=== PATIENT | female | born 1995 | race African-American/Black ===

== ENCOUNTER 2020-03-25 02:24 | Emergency (ER) | payer OTHER, SELFPAY ==
--- NOTE | 2020-03-25 02:29 | XR_ITS ---
EXAMINATION: XR KNEE, LEFT CLINICAL INFORMATION: Left knee pain. COMPARISON: None TECHNIQUE: AP and lateral views of the left knee. FINDINGS: Bones and soft tissues are normal. No fracture or joint effusion. Alignment is anatomic. Joint spaces are well maintained. No abnormal soft tissue calcification. XR/XR knee LT 2V IMPRESSION: Normal left knee.
[2020-03-25 02:34] VITALS: BP 114/70; PULSE 81; RESP 18; TEMP 36.7; O2SAT 99; BMI 35.2
--- NOTE | 2020-03-25 02:48 | PC.NURSE ---
Pt returns from XRay on hospital bed without incident, medicated per MAR.
[2020-03-25] MEDS: Acetaminophen 325 MG TABLET 975 MG PO (02:50)
[2020-03-25] MEDS: Ketorolac Tromethamine 15 MG/ML VIAL IM (02:50)
--- NOTE | 2020-03-25 03:06 | PC.NURSE ---
Pt assisted to the bathroom, unable to weight bare due to pain. Pt assisted back into bed to POC, awaiting XRay results. Continue to monitor.
--- NOTE | 2020-03-25 03:16 | ED_ITS ---
HPI - Extremity Injury (Lower) General Chief Complaint: Extremity Injury, Lower Stated Complaint: L KNEE PAIN S/P INJURY AT WORK Time Seen by Provider: 03/25/20 02:29 Source: patient Mode of arrival: EMS History of Present Illness HPI Narrative: This is a 24-year-old female without significant medical history who presents via EMS after sustaining an injury at work involving the right foot remaining planted and falling with a twisting motion involving the left knee. She denies any head strike or loss of consciousness. Currently she denies any pain to the right ankle or left ankle and states that pain is to the left knee without numbness/tingling distal to the injury. Related Data Previous Rx's Medication Instructions Recorded ketorolac 10 mg PO Q6H 5 Days #20 tab 03/25/20 Allergies Allergy/AdvReac Type Severity Reaction Status Date / Time No Known Allergies Allergy Unverified 12/27/19 16:37 [No Known Allergies*] Review of Systems Review of Systems: Pertinent positives and negatives as stated in HPI 10 point review of systems otherwise negative. [facility] Past Medical History Source: nursing notes reviewed Medical History No known health problems Social History Social History Advance Directives: No Advance Directives Information Provided: No Physical Exam Vital Signs: Vital Signs: Last Vital Signs Temp 98.1 F 03/25/20 02:34 Pulse 81 03/25/20 02:34 Resp 18 03/25/20 02:34 BP 114/70 03/25/20 02:34 Pulse Ox 99 03/25/20 02:34 Body Mass Index 35.2 VITAL SIGNS: Reviewed. GENERAL: Well developed, well nourished, in no acute distress. HEAD: Normocephalic/atraumatic, EYES: PERRLA, EOMI intact without pain, no nystagmus/pallor/icterus noted EARS: Ext canals without abnormality, TMs non-bulging and non-erythematous NOSE: Nares patent bilateral OROPHARYNX: no oral lesions noted, posterior pharynx clear and non-erythematous without noted tonsillar enlargement/erythema/exudates NECK: Supple, no adenopathy LUNGS: Normal breath sounds. No adventitious sounds or accessory muscle use. SpO2<99> CARDIOVASCULAR: Regular rate and rhythm without noted murmurs, no JVD or lower extremity edema. ABDOMEN: Soft, non-tender, non-distended with bowel sounds. No rigidity. No guarding. No palpable masses or hernias noted MUSCULOSKELETAL: No tenderness, deformities, or effusions noted on gross inspection. EXTREMITIES: No cyanosis, clubbing or edema; LEFT KNEE: No obvious edema or ecchymosis further evaluation limited by pain, capillary refill less than 3 seconds otherwise neurovascularly intact distal to the left knee SKIN: Inspection of the skin reveals no rashes, ulcerations, jaundice, pallor, or petechiae. NEUROLOGIC: Alert and oriented x 4. Strength and sensation to light touch were grossly intact x 4. Course Course Course Narrative: This is a 24-year-old female with history and clinical presentation most consistent with likely soft tissue injury as x-ray demonstrates absent bony or joint findings. Patient provided with combination analgesics for pain and will re-evaluate for pain improvement. She will otherwise be discharged with a knee immobilizer and crutches and instructed to follow-up with her company's employee health for further work evaluation. On re-evaluation patient his labs mild improvement pain symptoms and will have knee immobilizer put in place and received crutch training. Discharge Plan Discharge Clinical Impression: Injury of knee, left Qualifiers: Encounter type: initial encounter Qualified Code(s): S89.92XA - Unspecified injury of left lower leg, initial encounter Patient Disposition: Home, Self-Care Instructions: Crutch Instructions (ED), Knee Pain (ED), Knee Immobilizer (ED) Additional Instructions: 1. Tylenol 1000 mg, orally, every 6 hours as needed for pain control. Do not exceed 4000 mg within 24 hours. 2. Keep left lower extremity in knee immobilizer any time you are up and ambulating and use the crutches as well. 3. Apply ice for 15-20 minutes, 3 to 4 times a day, do not apply ice directly to exposed skin. 4. Try to keep left lower extremity elevated as much as possible. 5. Please call the office of the orthopedic surgeon this morning and set up an appointment for further evaluation of your left knee injury. Prescriptions: New ketorolac 10 mg tablet 10 mg PO Q6H 5 Days Qty: 20 RF: 0 Referrals: Gagan Pimentel MD [Physician] - 2 days (Please evaluate and treat left knee injury, suspect soft tissue injury as x-rays were without acute findings.) Stand Alone Forms: Work/School Release
--- NOTE | 2020-03-25 04:05 | PC.NURSE ---
Pt refusing Oxycodone at this time, aware of plan for knee immobilizer and crutches.
--- NOTE | 2020-03-25 04:33 | PC.NURSE ---
Knee immobilizer applied to left knee, pt provided with crutches. Pt aware of pending discharge but unable to find a ride home at this time.
[2020-03-25 04:36] VITALS: BP 116/80; PULSE 76; RESP 16
== END 2020-03-25 05:37 | disposition home or self-care (01) ==
PROVIDERS: Emergency Provider Student in an Organized Health Care Education/Training Program
DX: S89.92XA Unspecified injury of left lower leg, initial encounter (principal); M79.605 Pain in left leg; W01.0XXA Fall on same level from slipping, tripping and stumbling without subsequent striking against object, initial encounter; Y93.01 Activity, walking, marching and hiking; Y92.9 Unspecified place or not applicable; Y99.0 Civilian activity done for income or pay; Z79.899 Other long term (current) drug therapy
CPT/HCPCS: 73560; 96372; 99284; J1885

== ENCOUNTER 2020-04-14 12:32 | Emergency (ER) | payer OTHER, SELFPAY ==
[2020-04-14 13:53] VITALS: BP 122/75; PULSE 86; RESP 18; TEMP 36.5; O2SAT 98; BMI 31.9
--- NOTE | 2020-04-14 13:54 | ED.GENADULT ---
HPI - General Adult General Chief complaint: General Medical Stated complaint: VOMITING Time Seen by Provider: 04/14/20 13:54 Related Data Previous Rx's Medication Instructions Recorded ketorolac 10 mg PO Q6H 5 Days #20 tab 03/25/20 Allergies Allergy/AdvReac Type Severity Reaction Status Date / Time No Known Allergies Allergy Verified 03/25/20 04:06 [No Known Allergies*] PMFSH Past Medical History Medical History No known health problems Course Course Course Narrative: 1355-This is a rapid medical exam. 24 yo female previously healthy here with upper abdominal pain, vomiting x 4 days. Took 4 tests at home all positive. No cramping/bleeding. LMP 02/28. Will check labs, UA, urine . Give SL zofran. Deferred ROS, HPI and PE for primary provider. Discharge Plan Discharge Prescriptions: No Action ketorolac 10 mg tablet 10 mg PO Q6H 5 Days Qty: 20 RF: 0
[2020-04-14 14:20] LABS: Glucose Urine UA NEG (NEG); Leukocyte Esterase Urine NEG (NEG); Nitrite Urine NEG (NEG); Specific Gravity - Urine 1.025 (1.005-1.025); Urine Blood NEG (NEG); Urine Ketones NEG (NEG); Urine Protein NEG (NEG-TRACE)
[2020-04-14 14:21] LABS: Appearance Urine HAZY; Color Urine YELLOW; UPreg QC Valid YES; Urine Pregnancy POSITIVE (NEGATIVE)
[2020-04-14 18:00] VITALS: BP 125/61; PULSE 87; RESP 16; TEMP 36.8; O2SAT 100
--- NOTE | 2020-04-14 18:18 | US_ITS ---
EXAMINATION: US OB <= 14 weeks fetus, US OB transvaginal CLINICAL INFORMATION: Abdominal pain. Approximately one month COMPARISON: None. TECHNIQUE: Transabdominal and endovaginal sonograms of the pelvis were obtained. FINDINGS: There is a single living intrauterine including a gestational sac with a yolk sac and embryo. Embryonic heart motion is identified with rate 98 bpm. Based on the mean crown-rump length 2 mm, gestational age is 5 weeks 6 days. Sonographic NIMA 12/09/2020. Based on the last menstrual period of 02/29/2020, the clinical age is 6 weeks 3 days, clinical NIMA 12/05/2020, size 4 days less than dates. Normal-appearing right ovary measures 3.9 x 2.5 x 2.4 cm. Normal-appearing left ovary measures 2.6 x 1.8 x 2.6 cm. Small amount of likely physiologic free fluid is present adjacent the right ovary. US/US OB transvaginal IMPRESSION: Single living intrauterine with size 4 days less than dates. Embryonic heart motion is identified with rate 98 bpm. This is lower than typically seen but the heart rate can be variable at this gestational age. Consider short interval follow-up ultrasound to confirm expected interval growth and reassess heart motion.
--- NOTE | 2020-04-14 18:30 | US_ITS ---
EXAMINATION: US OB <= 14 weeks fetus, US OB transvaginal CLINICAL INFORMATION: Abdominal pain. Approximately one month COMPARISON: None. TECHNIQUE: Transabdominal and endovaginal sonograms of the pelvis were obtained. FINDINGS: There is a single living intrauterine including a gestational sac with a yolk sac and embryo. Embryonic heart motion is identified with rate 98 bpm. Based on the mean crown-rump length 2 mm, gestational age is 5 weeks 6 days. Sonographic NIMA 12/09/2020. Based on the last menstrual period of 02/29/2020, the clinical age is 6 weeks 3 days, clinical NIMA 12/05/2020, size 4 days less than dates. Normal-appearing right ovary measures 3.9 x 2.5 x 2.4 cm. Normal-appearing left ovary measures 2.6 x 1.8 x 2.6 cm. Small amount of likely physiologic free fluid is present adjacent the right ovary. US/US OB <= 14 weeks fetus IMPRESSION: Single living intrauterine with size 4 days less than dates. Embryonic heart motion is identified with rate 98 bpm. This is lower than typically seen but the heart rate can be variable at this gestational age. Consider short interval follow-up ultrasound to confirm expected interval growth and reassess heart motion.
--- NOTE | 2020-04-14 18:30 | US_ITS ---
EXAMINATION: ABDOMINAL ULTRASOUND COMPLETE CLINICAL INFORMATION: Left upper quadrant pain. COMPARISON: October 07, 2016. TECHNIQUE: Real-time imaging of the abdominal viscera. FINDINGS: PANCREAS: The visualized pancreatic head and body are normal in appearance. The remainder of the pancreas is obscured from visualization by the overlying bowel gas. ABDOMINAL AORTA: The proximal, middle, and distal aortic segments are normal in caliber. INFERIOR VENA CAVA: Visualized portions are normal. LIVER: Normal. The liver demonstrates normal size, contour and echogenicity. No focal lesion or intrahepatic biliary duct dilatation. GALLBLADDER: Normal. The gallbladder is physiologically distended without evidence of stones, sludge, polyps, wall thickening or pericholecystic fluid. COMMON BILE DUCT: Normal in caliber measuring 0.3 cm in diameter. RIGHT KIDNEY: Normal. No hydronephrosis. No renal calculi or focal parenchymal lesions. The kidney measures 11.7 cm in maximum dimension. LEFT KIDNEY: Normal. No hydronephrosis. No renal calculi or focal parenchymal lesions. The kidney measures 12.3 cm in maximum dimension. SPLEEN: Normal. The spleen measures 10.2 cm in maximum dimension. FREE FLUID: None. US/US abdomen complete IMPRESSION: Unremarkable abdominal ultrasound.
[2020-04-14 18:51] LABS: Hematocrit 33.8 % (37-47); Mean Corpuscular HGB Conc 32.5 g/dl (31.0-35.0); Mean Corpuscular Hemoglobin 27.4 pg (27.0-33.0); Mean Corpuscular Volume 84.3 fL (80-98); Mean Platelet Volume 11.1 fL (9.4-12.3); Platelet Count 336 X10*3/uL (160-400); Red Blood Count 4.01 X10*6/uL (4.20-5.50); Red Cell Distribution Width 14.6 % (11.0-16.0)
[2020-04-14 19:23] LABS: WBC ABN SCTR FOR CBC 1; White Blood Count 12.3 X10*3/uL (4.8-10.8)
[2020-04-14 19:26] LABS: Alanine Aminotransferase 12 U/L (0-31); Albumin Level 4.4 g/dL (3.5-5.0); Alkaline Phosphatase 42 U/L (39-117); Anion Gap 9 (12-20); Aspartate Amino Transferase 10 U/L (5-31); Bilirubin Direct 0.2 mg/dL (0.0-0.5); Bilirubin Total 0.3 mg/dL (0.0-1.0); Blood Urea Nitrogen 12 mg/dL (9-16); Carbon Dioxide 27 mmol/L (22-29); Chloride 104 mmol/L (96-108); Creatinine Clr Calc Pharmacy 149.9; Estimated Glomerular Filt Rate > 60; Glucose Random 90 mg/dL (60-115); Lipase 40 U/L (8-78); Potassium 4.2 mmol/l (3.3-5.1); Sodium 136 mmol/L (135-145); Total Protein 6.9 g/dL (6.5-8.0)
[2020-04-14 19:27] LABS: Band Neutrophils Percent 9 % (3-5); Lymphocytes Absolute Manual 2.8 X10*3/uL (0.6-4.8); Lymphocytes Percent Manual 23 % (20-40); Monocytes Absolute Manual 1.1 X10*3/uL (0.0-1.2); Monocytes Percent Manual 9 % (2-11); Neutrophils Absolute Manual 8.4 X10*3/uL (2.2-7.9); Neutrophils Percent Manual 59 % (45-73)
[2020-04-14 19:28] LABS: Large Platelet PRESENT; Platelet Estimate NORMAL (NORMAL); Platelet Morphology Comment NOTED; RBC Morphology NORMAL
--- NOTE | 2020-04-14 19:44 | ED_ITS ---
HPI - General Chief complaint: General Medical Stated complaint: VOMITING Time Seen by Provider: 04/14/20 13:54 Source: patient Mode of arrival: ambulatory Limitations: no limitations History of Present Illness HPI Narrative: 24-year-old female with no significant past medical history presents with nausea, vomiting, abdominal pain in the epigastric and left upper quadrant, and positive test. Patient insists that she must have an abdominal and pelvic ultrasound because she is concerned about the well-being of her fetus. She states that she is not supposed to have pain, and was told by ?multiple medical center representative that she must have an emergent ultrasound . She does not report any vaginal bleeding, vaginal discharge, assault, trauma, chest pain or pressure, palpitations, shortness of breath, fevers, chills, lower abdominal or suprapubic pain, or fevers and chills. MD Complaint: abdominal pain Onset (ago): day(s) (4) Pain Consistency: constant Location: abdomen Severity: moderate Severity scale (1-10): 6 Quality: Aching and Burning Relieving factors: none Exacerbating factors: eating and movement Associated symptoms: nausea and vomiting Vaginal discharge: none Vaginal bleeding: none Date of Last Menstrual Period: 02/29/20 Patient : Yes Related Data : 1 Para: 0 Total number of abortions (spontaneous and elective): 0 Previous Rx's Medication Instructions Recorded ketorolac 10 mg PO Q6H 5 Days #20 tab 03/25/20 Allergies Allergy/AdvReac Type Severity Reaction Status Date / Time No Known Allergies Allergy Verified 04/14/20 18:45 [No Known Allergies*] Review of Systems Review of Systems: Constitutional: No Weight loss, No Fever, No Chills, No Night Sweats, No Fatigue, No Malaise ENT/Mouth: No Hearing loss, No Ear Pain, No Nasal Congestion, No Sinus Pain, No Hoarseness, No sore throat, No Rhinorrhea, No Swallowing Difficulty Eyes: No Eye Pain, No Swelling, No Redness, No Foreign Body, No Discharge, No Vision Changes Cardiovascular: No Chest Pain, No SOB, No Dyspnea on Exertion, No Orthopnea, No Edema, No Palpitations Respiratory: No Cough, No Sputum, No Wheezing, No Smoke Exposure, No Dyspnea Gastrointestinal: Positive Nausea, Positive Vomiting, no Diarrhea, positive abdominal Pain, No Hematochezia, No Melena Genitourinary: Positive , no irregular bleeding, No Dysuria, No Urinary Frequency, No Hematuria, No Urinary Incontinence, No Urgency, No Flank Pain, No Urinary Flow Changes, No Hesitancy Musculoskeletal: No joint pain, No Myalgias, No Joint Swelling Skin: No Skin Lesions, No rash Neuro: No Weakness, No Numbness, No Paresthesias, No Loss of Consciousness, No Dizziness, No Headache Psych: No Anxiety/Panic, No Depression, No SI/HI/AH/VH, No Social Issues Heme/Lymph: No Bruising, No Bleeding,No Lymphadenopathy Endocrine: No Polyuria, No Polydipsia, No Temperature Intolerance Yes all other systems are reviewed and are negative [facility] Past Medical History Attestation statement: The following information was validated with the patient. Medical History No known health problems : 1 Para: 0 Total number of abortions (spontaneous and elective): 0 Date of Last Menstrual Period: 02/29/20 Social History Social History Advance Directives: No Advance Directives Information Provided: No Physical Exam Vital Signs: Vital Signs: Last Vital Signs Temp 97.9 F 04/14/20 20:32 Pulse 84 04/14/20 20:32 Resp 16 04/14/20 20:32 BP 131/71 04/14/20 20:32 Pulse Ox 100 04/14/20 20:32 Body Mass Index 31.9 Appearance: Alert. Oriented X3. No acute distress. Eyes: Pupils equal, round and reactive to light. ENT: Pharynx normal. Neck: Normal inspection. Neck supple. CVS: Normal heart rate and rhythm. Pulses normal. Respiratory: No respiratory distress. Breath sounds normal. Abdomen: Soft and tender on palpation to the epigastric and left upper quadrant, no palpable uterus Skin: Skin warm and dry. Normal skin color. Normal skin turgor. Extremities: No lower extremity edema. Neuro: No motor deficit. No sensory deficit. Course Course Course Narrative: 24-year-old female presents with nausea, vomiting, epigastric and left upper quadrant abdominal pain. She does not have any significant past medical history, states that she was told by several medical center representative that she needs an ultrasound emergently . She does not describe any suprapubic or adnexal pain, states to have cramping with her nausea and vomiting. Denies v aginal bleeding or discharge or risk for sexually transmitted infection, denies trauma and assault. Labs show elevated white count of 12.3 with H&H of 11.0/38 which is consistent with , urinalysis is negative for acute findings. Abdominal and transvaginal ultrasound pending. Abdominal ultrasound shows 5 week 6 day fetus with a heart rate of 98 in the uterus. No indication of ectopic or adnexal masses. This JUDICIAL ADMINISTRATIVE ASSISTANT attempted to discuss findings, patient was in a spirited conversation on the telephone and was not receptive to my discussion. Discharge instructions per RN. MDM - OB/Uterine Contractions MDM Narrative Medical decision making narrative: Hyperemesis gravidarum, abdominal pain, cholecystitis, gastritis, gastroenteritis, molar , ectopic Medical Records Attestation: I reviewed the patient's medical records. Lab Data Attestation: I reviewed the patient's lab results. Result diagrams: 04/14/20 18:41 04/14/20 18:41 Labs: Lab Results 04/14/20 04/14/20 04/14/20 Range/Units 14:07 18:41 18:41 WBC 12.3 H (4.8-10.8) X10*3/uL RBC 4.01 L (4.20-5.50) X10*6/uL Hgb 11.0 L (12.0-16.0) g/dl Hct 33.8 L (37-47) % MCV 84.3 (80-98) fL MCH 27.4 (27.0-33.0) pg MCHC 32.5 (31.0-35.0) g/dl RDW 14.6 (11.0-16.0) % Plt Count 336 (160-400) X10*3/uL MPV 11.1 (9.4-12.3) fL Immature Gran % (Auto) Cancelled Neut % (Auto) Cancelled Lymph % (Auto) Cancelled [place] % (Auto) Cancelled Eos % (Auto) Cancelled Baso % (Auto) Cancelled Lymph # (Auto) Cancelled [place] # (Auto) Cancelled Eos # (Auto) Cancelled Baso # (Auto) Cancelled Abs Immat Gran (auto) Cancelled Absolute Neuts (auto) Cancelled Absolute Nucleated RBC 0.000 (0.0-0.012) X10*3/uL Nucleated RBC % (auto) 0.0 (0.0-0.2) /100WBC Neutrophils % (Manual) 59 (45-73) % Band Neutrophils % 9 H (3-5) % Lymphocytes % (Manual) 23 (20-40) % Monocytes % (Manual) 9 (2-11) % Abs Neuts (Manual) 8.4 H (2.2-7.9) X10*3/uL Lymphocytes # (Manual) 2.8 (0.6-4.8) X10*3/uL Monocytes # (Manual) 1.1 (0.0-1.2) X10*3/uL Platelet Estimate NORMAL (NORMAL) Large Platelets PRESENT Plt Morphology Comment NOTED RBC Morphology NORMAL Hold Blue Top SEE NOTE Sodium (135-145) mmol/L Potassium (3.3-5.1) mmol/l Chloride (96-108) mmol/L Carbon Dioxide (22-29) mmol/L Anion Gap (12-20) BUN (9-16) mg/dL Creatinine (0.5-1.4) mg/dL Estim Creat Clear Calc Estimated GFR Random Glucose (60-115) mg/dL Calcium (8.4-10.2) mg/dL Total Bilirubin (0.0-1.0) mg/dL Direct Bilirubin (0.0-0.5) mg/dL AST (5-31) U/L ALT (0-31) U/L Alkaline Phosphatase (39-117) U/L Total Protein (6.5-8.0) g/dL Albumin (3.5-5.0) g/dL Lipase (8-78) U/L Urine Color YELLOW Urine Appearance HAZY Urine pH 6.0 (5.0-8.0) Ur Specific [place] 1.025 (1.005-1.025) Urine Protein NEG (NEG-TRACE) MG/DL Urine Glucose (UA) NEG (NEG) MG/DL Urine Ketones NEG (NEG) MG/DL Urine Blood NEG (NEG) Urine Nitrite NEG (NEG) Ur Leukocyte Esterase NEG (NEG) Urine Test POSITIVE H (NEGATIVE) 04/14/20 Range/Units 18:41 WBC (4.8-10.8) X10*3/uL RBC (4.20-5.50) X10*6/uL Hgb (12.0-16.0) g/dl Hct (37-47) % MCV (80-98) fL MCH (27.0-33.0) pg MCHC (31.0-35.0) g/dl RDW (11.0-16.0) % Plt Count (160-400) X10*3/uL MPV (9.4-12.3) fL Immature Gran % (Auto) Neut % (Auto) Lymph % (Auto) [place] % (Auto) Eos % (Auto) Baso % (Auto) Lymph # (Auto) [place] # (Auto) Eos # (Auto) Baso # (Auto) Abs Immat Gran (auto) Absolute Neuts (auto) Absolute Nucleated RBC (0.0-0.012) X10*3/uL Nucleated RBC % (auto) (0.0-0.2) /100WBC Neutrophils % (Manual) (45-73) % Band Neutrophils % (3-5) % Lymphocytes % (Manual) (20-40) % Monocytes % (Manual) (2-11) % Abs Neuts (Manual) (2.2-7.9) X10*3/uL Lymphocytes # (Manual) (0.6-4.8) X10*3/uL Monocytes # (Manual) (0.0-1.2) X10*3/uL Platelet Estimate (NORMAL) Large Platelets Plt Morphology Comment RBC Morphology Hold Blue Top Sodium 136 (135-145) mmol/L Potassium 4.2 (3.3-5.1) mmol/l Chloride 104 (96-108) mmol/L Carbon Dioxide 27 (22-29) mmol/L Anion Gap 9 L (12-20) BUN 12 (9-16) mg/dL Creatinine 0.71 (0.5-1.4) mg/dL Estim Creat Clear Calc 149.9 Estimated GFR > 60 Random Glucose 90 (60-115) mg/dL Calcium 9.0 (8.4-10.2) mg/dL Total Bilirubin 0.3 (0.0-1.0) mg/dL Direct Bilirubin 0.2 (0.0-0.5) mg/dL AST 10 (5-31) U/L ALT 12 (0-31) U/L Alkaline Phosphatase 42 (39-117) U/L Total Protein 6.9 (6.5-8.0) g/dL Albumin 4.4 (3.5-5.0) g/dL Lipase 40 (8-78) U/L Urine Color Urine Appearance Urine pH (5.0-8.0) Ur Specific [place] (1.005-1.025) Urine Protein (NEG-TRACE) MG/DL Urine Glucose (UA) (NEG) MG/DL Urine Ketones (NEG) MG/DL Urine Blood (NEG) Urine Nitrite (NEG) Ur Leukocyte Esterase (NEG) Urine Test (NEGATIVE) Imaging Data US - abdomen: Attestation: I personally reviewed and interpreted this imaging study as follows: Radiologist's impression: EXAMINATION: ABDOMINAL ULTRASOUND COMPLETE CLINICAL INFORMATION: Left upper quadrant pain. COMPARISON: October 07, 2016. TECHNIQUE: Real-time imaging of the abdominal viscera. FINDINGS: PANCREAS: The visualized pancreatic head and body are normal in appearance. The remainder of the pancreas is obscured from visualization by the overlying bowel gas. ABDOMINAL AORTA: The proximal, middle, and distal aortic segments are normal in caliber. INFERIOR VENA CAVA: Visualized portions are normal. LIVER: Normal. The liver demonstrates normal size, contour and echogenicity. No focal lesion or intrahepatic biliary duct dilatation. GALLBLADDER: Normal. The gallbladder is physiologically distended without evidence of stones, sludge, polyps, wall thickening or pericholecystic fluid. COMMON BILE DUCT: Normal in caliber measuring 0.3 cm in diameter. RIGHT KIDNEY: Normal. No hydronephrosis. No renal calculi or focal parenchymal lesions. The kidney measures 11.7 cm in maximum dimension. LEFT KIDNEY: Normal. No hydronephrosis. No renal calculi or focal parenchymal lesions. The kidney measures 12.3 cm in maximum dimension. SPLEEN: Normal. The spleen measures 10.2 cm in maximum dimension. FREE FLUID: None. US/US abdomen complete IMPRESSION: Unremarkable abdominal ultrasound. Ob ultrasound: Attestation: I personally reviewed and interpreted this imaging study as follows: Radiologist's impression: cc: JOHAN CORONADO JUDICIAL ADMINISTRATIVE ASSISTANT~ EXAMINATION: US OB <= 14 weeks fetus, US OB transvaginal CLINICAL INFORMATION: Abdominal pain. Approximately one month COMPARISON: None. TECHNIQUE: Transabdominal and endovaginal sonograms of the pelvis were obtained. FINDINGS: There is a single living intrauterine including a gestational sac with a yolk sac and embryo. Embryonic heart motion is identified with rate 98 bpm. Based on the mean crown-rump length 2 mm, gestational age is 5 weeks 6 days. Sonographic NIMA 12/09/2020. Based on the last menstrual period of 02/29/2020, the clinical age is 6 weeks 3 days, clinical NIMA 12/05/2020, size 4 days less than dates. Normal-appearing right ovary measures 3.9 x 2.5 x 2.4 cm. Normal-appearing left ovary measures 2.6 x 1.8 x 2.6 cm. Small amount of likely physiologic free fluid is present adjacent the right ovary. US/US OB <= 14 weeks fetus IMPRESSION: Single living intrauterine with size 4 days less than dates. Embryonic heart motion is identified with rate 98 bpm. This is lower than typically seen but the heart rate can be variable at this gestational age. Consider short interval follow-up ultrasound to confirm expected interval growth and reassess heart motion. Discharge Plan Discharge Clinical Impression: , Hyperemesis gravidarum Patient Disposition: Home, Self-Care Instructions: Hyperemesis Gravidarum (ED), Abdominal Pain in (ED), First Trimester (ED) Additional Instructions: You were evaluated for nausea and vomiting, your test is positive. Ultrasound shows living intrauterine at 5 weeks 6 days. You must foll ow-up with OBGYN. You may consider following up with your own or call Dr Bermeo for care Thank you for choosing this emergency department for evaluation. Please follow-up with primary care physician as needed. Return to the emergency department for any new, concerning, or worsening symptoms. Prescriptions: No Action ketorolac 10 mg tablet 10 mg PO Q6H 5 Days Qty: 20 RF: 0 Referrals: Luis Enrique Bermeo MD [Physician] - 2 days () Stand Alone Forms: Work/School Release Interventions: ED Discharge Assessment Last Done: 04/14/20 21:31 Discharge Date/Time: 04/14/20 21:44
[2020-04-14 20:32] VITALS: BP 131/71; PULSE 84; RESP 16; TEMP 36.6; O2SAT 100
== END 2020-04-14 21:44 | disposition home or self-care (01) ==
PROVIDERS: Nurse Practitioner Family; Emergency Provider Student in an Organized Health Care Education/Training Program
DX: O21.0 Mild hyperemesis gravidarum (principal); Z3A.01 Less than 8 weeks gestation of pregnancy
CPT/HCPCS: 36415; 76700; 76801; 76817; 80048; 80076; 81003; 81025; 83690; 85007; 85025; 85027; 99284

== ENCOUNTER → 2020-08-19 09:48 | Outpatient (BNVA) | payer MEDICAID, SELFPAY | PROVIDERS: Visit Provider Obstetrics & Gynecology | DX: Z34.02 Encounter for supervision of normal first pregnancy, second trimester (principal); Z3A.22 22 weeks gestation of pregnancy | CPT/HCPCS: 99212 ==

== ENCOUNTER 2020-08-20 12:46 | Outpatient (REF) | payer MEDICAID, SELFPAY ==
[2020-08-20 13:31] LABS: MANUAL DIFF FLAG NO
[2020-08-20 13:43] LABS: Basophils Percent Auto 0.3 % (0-2); Eosinophils Absolute Auto 0.1 X10*3/uL (0.0-0.4); Hematocrit 30.3 % (37-47); Imm Gran Abs Auto 0.13 X10*3/uL (0.00-0.03); Imm Gran Pct Auto 1.1 % (0.0-0.4); Lymphocytes Absolute Auto 2.1 X10*3/uL (1.2-4.9); Lymphocytes Percent Auto 17.9 % (20-40); Mean Corpuscular Hemoglobin 28.7 pg (27.0-33.0); Mean Corpuscular Volume 87.1 fL (80-98); Mean Platelet Volume 11.8 fL (9.4-12.3); Monocytes Absolute Auto 0.7 X10*3/uL (0.1-1.2); Monocytes Percent Auto 6.3 % (2-11); Neutrophils Absolute Auto 8.5 X10*3/uL (2.0-8.3); Neutrophils Percent Auto 73.4 % (45-73); Platelet Count 256 X10*3/uL (160-400); Red Blood Count 3.48 X10*6/uL (4.20-5.50); Red Cell Distribution Width 15.1 % (11.0-16.0); White Blood Count 11.5 X10*3/uL (4.8-10.8)
[2020-08-20 14:17] LABS: Syphilis Screen Nonreactive (Nonreactive)
[2020-08-20 14:40] LABS: Sickle Cell Scr NEGATIVE (NEGATIVE)
[2020-08-20 14:48] LABS: Amphetamine Screen Urine Not Detected (Not Detect); Barbiturates, Urine Not Detected (Not Detect); Benzodiazepines Screen Urine Not Detected (Not Detect); Cannabinoid Screen Urine Not Detected (Not Detect); Cocaine Screen Urine Not Detected (Not Detect); Opiate Screen Urine Not Detected (Not Detect); Phencyclidine Screen Urine Not Detected (Not Detect)
[2020-08-21 05:17] LABS: Rubella IgG Antibody 1.85 Index; Varicella IgG Antibody <135.00 index
[2020-08-22 07:56] LABS: ~HepC Num1 0.07 S/CO (0.00-0.79); ~Hepatitis C Antibody Nonreactive (Nonreactive)
[2020-08-22 08:38] LABS: HBsAGNum1 0.18 S/CO (0.00-0.99); HIV AB/AG Nonreactive (Nonreactive); HIV Num 1 0.06 S/CO (0.00-0.99); Hepatitis B Surface Antigen Negative (Negative)
== END 2020-08-20 12:47 | disposition home or self-care (01) ==
LOC: HO.LAB 12:46
PROVIDERS: Visit Provider Obstetrics & Gynecology
DX: Z34.90 Encounter for supervision of normal pregnancy, unspecified, unspecified trimester (principal)
CPT/HCPCS: 80307; 85025; 85660; 86762; 86780; 86787; 86803; 86850; 86900; 86901; 87086; 87340; 87389

== ENCOUNTER 2020-08-26 14:17 | Outpatient (REF) | payer MEDICAID, SELFPAY | END 2020-08-26 14:18 | disposition home or self-care (01) | LOC: HO.LAB 14:17 | PROVIDERS: Visit Provider Obstetrics & Gynecology | DX: O99.892 Other specified diseases and conditions complicating childbirth (principal); R06.02 Shortness of breath; Z3A.25 25 weeks gestation of pregnancy | CPT/HCPCS: 88142; 99212 ==

== ENCOUNTER 2020-09-06 09:23 | Emergency (ER) | payer MEDICAID, SELFPAY ==
[2020-09-06 09:31] VITALS: BP 131/81; PULSE 92; RESP 18; TEMP 37.9; O2SAT 98; BMI 37.8
--- NOTE | 2020-09-06 09:44 | ED.GENADULT ---
HPI - General Adult General Chief complaint: General Medical Stated complaint: ABD PAIN Time Seen by Provider: 09/06/20 09:36 Source: patient Mode of arrival: ambulatory Limitations: no limitations History of Present Illness HPI narrative: 25-year-old female w/ h/o anxiety/depression currently 24 3/7 weeks here with complaints of generalized abdominal cramping since last evening. No associated vaginal bleeding, urinary symptoms, nausea, vomiting, diarrhea. NIMA 12/17/2020. LMP 02/29/20. Patient currently lives in a senior care and recently moved here from [place]. She had her 1st OB appointment on August [address] Rodriguez Related Data Previous Rx's Medication Instructions Recorded ketorolac 10 mg PO Q6H 5 Days #20 tab 03/25/20 fluconazole 150 mg tablet 150 mg PO Q3D #2 tab 09/02/20 Allergies Allergy/AdvReac Type Severity Reaction Status Date / Time No Known Allergies Allergy Verified 08/26/20 14:25 [No Known Allergies*] Review of Systems Review of Systems: Yes all other systems are reviewed and are negative Constitutional: Constitutional: Reports no additional constitutional complaints, Denies body ache(s), Denies chills, Denies fever(s), Denies headache(s) and Denies weakness Eyes: Eyes: Reports no additional eye complaints and Denies change in vision ENT: Reports system reviewed and no additional complaints, except as documented, Denies dizziness, Denies headache(s), Denies nasal congestion, Denies nasal discharge and Denies neck pain Cardiovascular: Cardiovascular: Reports no additional cardiovascular complaints, Denies chest pain, Denies leg edema and Denies dyspnea Respiratory: Respiratory: Reports no additional respiratory complaints, Denies cough and Denies dyspnea Gastrointestinal: Gastrointestinal: Reports no additional gastrointestinal complaints, Reports abdominal pain, Denies diarrhea, Denies nausea and Denies vomiting Genitourinary: Genitourinary: Reports no additional female genitourinary complaints and Denies urinary incontinence Musculoskeletal: Musculoskeletal: Reports no additional musculoskeletal complaints, Denies back pain, Denies arthralgias, Denies joint swelling, Denies neck pain, Denies numbness and Denies tingling Integumentary/Breasts: Skin/Breast: Reports system reviewed and no additional complaints, except as docu and Denies rash Neurologic: Reports system reviewed and no additional complaints, except as documented, Denies Abnormal speech present, Denies dizziness, Denies headache(s), Denies numbness, Denies tingling and Denies weakness [facility] Past Medical History Attestation statement: The following information was validated with the patient. Source: unable to obtain, old records reviewed and nursing notes reviewed Medical History Anxiety Depression No known health problems Family History Family History Mother Thyroid condition Maternal Grandmother Hx of diabetes mellitus HTN (hypertension) High cholesterol Social History Social History Household Members: Significant Other Housing Other:: [facility] Alcohol intake: never Trauma History: none Special margaret needs: No Agree to transfusion: Yes Advance Directives: No Advance Directives Information Provided: No Patient : Yes Physical Exam Vital Signs: Vital Signs: Last Vital Signs Temp 98.6 F 09/06/20 11:54 Pulse 72 09/06/20 11:54 Resp 18 09/06/20 11:54 BP 128/73 09/06/20 11:54 Pulse Ox 100 09/06/20 11:54 Body Mass Index 37.8 Const: General: cooperative, healthy appearing, comfortable and no acute distress Orientation/consciousness: patient oriented x3 Limitations: no limitations HENMT: Head: Yes normal to inspection Ears: hearing grossly normal bilaterally General nose exam: Normal external nose present Face and sinus: Yes normal facial exam Mouth: Normal oral and palatal mucosa present Throat: Yes posterior oropharynx normal Eyes: General: appearance normal, both eyes and all related structures Pupils: Equal, round and reactive pupils present Neck: Neck: Yes normal visual inspection Chest: Chest palpation & inspection: normal inspection of the chest Resp: Effort & Inspection: normal respiratory effort Auscultation: clear to auscultation bilaterally Cardio: Rate: regular rate Rhythm: regular rhythm Peripheral pulses: Peripheral pulses 2+ throughout GI: Other: FHT 150 Inspection: Yes normal to inspection Palpation (GI): Soft to palpation and Tenderness to palpation present (GI) (Diffusely tender. No focal tenderness, rebound or guarding) Auscultation: normal bowel sounds : Other: Scant white discharge noted Trang monroe present as inspection clerk. External Female Exam: normal external appearance Speculum Exam - Vagina: normal appearance of the vagina Speculum Exam - Cervix: normal appearance of the cervix Back/Spine/Pelvis: Thoracic/Lumbar Spine: thoracic and lumbar spine normal to inspection Skin: General skin exam: no rashes or lesions noted Neuro: General: patient oriented x3, no focal motor deficits and normal sensation to monofilament Cranial nerves: Yes Equal, round and reactive pupils present Cognition (Neuro): normal cognition Speech: No Abnormal speech present Gait exam (Neuro): Normal gait present Motor exam (neuro): 5/5 motor strength present throughout Extrem: General: Yes normal to inspection Course Course Course Narrative: 25-year-old female currently 24 weeks here with generalized abdominal cramping since last evening with no other associated symptoms. Describes the cramping as constant, does not wax and wane which does not seem like a typical for contractions. On arrival hemodynamically stable. She does have a low-grade temp 100.2 but no tachycardia or systemic s/s concerning for infection. Has not received COVID vaccine. Will need labs, UA, HR, discussion with OB, covid screen. 1100-Labs show mild leukocytosis unchanged from previous. All other labs unremarkable. COVID pending. UA negative. FHT 150. When to speak to patient and she tells me she has had intermittent right-sided abdominal and epigastric pain her entire however today since last evening she feels like she has pain all over her abdomen and it is constant and not so it made her concerned. She does after voiding today she noticed some blood on the toilet paper after wiping. She has not noticed any other vaginal bleeding. Continued cramping despite 500ml NS and APAP, fluids continued. Will d/w with OB. O positive in system 08/20/20. 1110-Discussed with Dr Bermeo. [place] [facility] [place] [facility] [place] discuss for [place] for r/o pre-term labor. Spoke to transfer line and pending call back. 1120-Discussed with Dr Leslie Ramsey at [facility] [place] is requesting pelvic exam prior to acceptance. 1130-Pelvic exam shows normal cervix and os. Call back to discuss. 1135-Connected with OB at [facility] [facility] [place] Accepting MD Ronny Friedman. Medical Decision Making [facility] Narrative Medical decision making narrative: pre-term labor Medical Records Medical records reviewed: Yes I reviewed the patient's medical records. Lab Data Lab results reviewed: Yes I reviewed the patient's lab results. Result diagrams: 09/06/20 10:03 09/06/20 10:02 Labs: Lab Results 09/06/20 09/06/20 09/06/20 Range/Units 09:51 10:02 10:02 WBC (4.8-10.8) X10*3/uL RBC (4.20-5.50) X10*6/uL Hgb (12.0-16.0) g/dl Hct (37-47) % MCV (80-98) fL MCH (27.0-33.0) pg MCHC (31.0-35.0) g/dl RDW (11.0-16.0) % Plt Count (160-400) X10*3/uL MPV (9.4-12.3) fL Immature Gran % (Auto) (0.0-0.4) % Neut % (Auto) (45-73) % Lymph % (Auto) (20-40) % [place] % (Auto) (2-11) % Eos % (Auto) (0-4) % Baso % (Auto) (0-2) % Lymph # (Auto) (1.2-4.9) X10*3/uL [place] # (Auto) (0.1-1.2) X10*3/uL Eos # (Auto) (0.0-0.4) X10*3/uL Baso # (Auto) (0.0-0.2) X10*3/uL Abs Immat Gran (auto) (0.00-0.03) X10*3/uL Absolute Neuts (auto) (2.0-8.3) X10*3/uL Absolute Nucleated RBC (0.0-0.012) X10*3/uL Nucleated RBC % (auto) (0.0-0.2) /100WBC Sodium 137 (135-145) mmol/L Potassium 3.9 (3.3-5.1) mmol/L Chloride 108 (96-108) mmol/L Carbon Dioxide 20 L (22-29) mmol/L Anion Gap 13 (12-20) BUN 8 L (9-16) mg/dL Creatinine 0.60 (0.5-1.4) mg/dL Estim Creat Clear Calc 192.3 Estimated GFR > 60 Random Glucose 115 (60-115) mg/dL Lactic Acid 1.8 (0.5-2.0) mmol/L Calcium 9.0 (8.4-10.2) mg/dL Total Bilirubin 0.2 (0.0-1.0) mg/dL Direct Bilirubin < 0.2 (0.0-0.5) mg/dL AST 16 D (5-31) U/L ALT 20 (0-31) U/L Alkaline Phosphatase 66 D (39-117) U/L Total Protein 6.2 L (6.5-8.0) g/dL Albumin 3.6 (3.5-5.0) g/dL Beta HCG, Quant mIU/mL Urine Color YELLOW Urine Appearance HAZY Urine pH 6.5 (5.0-8.0) Ur Specific [place] 1.020 (1.005-1.025) Urine Protein NEG (NEG-TRACE) MG/DL Urine Glucose (UA) NEG (NEG) MG/DL Urine Ketones NEG (NEG) MG/DL Urine Blood NEG (NEG) Urine Nitrite NEG (NEG) Ur Leukocyte Esterase NEG (NEG) COVID-19 (HOANG) (Negative) COVID-19 Clin Com 09/06/20 09/06/20 09/06/20 Range/Units 10:02 10:03 10:04 WBC 13.0 H (4.8-10.8) X10*3/uL RBC 3.60 L (4.20-5.50) X10*6/uL Hgb 10.4 L (12.0-16.0) g/dl Hct 31.4 L (37-47) % MCV 87.2 (80-98) fL MCH 28.9 (27.0-33.0) pg MCHC 33.1 (31.0-35.0) g/dl RDW 14.6 (11.0-16.0) % Plt Count 281 (160-400) X10*3/uL MPV 11.5 (9.4-12.3) fL Immature Gran % (Auto) 1.2 H (0.0-0.4) % Neut % (Auto) 74.6 H (45-73) % Lymph % (Auto) 17.4 L (20-40) % [place] % (Auto) 5.9 (2-11) % Eos % (Auto) 0.7 (0-4) % Baso % (Auto) 0.2 (0-2) % Lymph # (Auto) 2.3 (1.2-4.9) X10*3/uL [place] # (Auto) 0.8 (0.1-1.2) X10*3/uL Eos # (Auto) 0.1 (0.0-0.4) X10*3/uL Baso # (Auto) 0.0 (0.0-0.2) X10*3/uL Abs Immat Gran (auto) 0.16 H (0.00-0.03) X10*3/uL Absolute Neuts (auto) 9.7 H (2.0-8.3) X10*3/uL Absolute Nucleated RBC 0.000 (0.0-0.012) X10*3/uL Nucleated RBC % (auto) 0.0 (0.0-0.2) /100WBC Sodium (135-145) mmol/L Potassium (3.3-5.1) mmol/L Chloride (96-108) mmol/L Carbon Dioxide (22-29) mmol/L Anion Gap (12-20) BUN (9-16) mg/dL Creatinine (0.5-1.4) mg/dL Estim Creat Clear Calc Estimated GFR Random Glucose (60-115) mg/dL Lactic Acid (0.5-2.0) mmol/L Calcium (8.4-10.2) mg/dL Total Bilirubin (0.0-1.0) mg/dL Direct Bilirubin (0.0-0.5) mg/dL AST (5-31) U/L ALT (0-31) U/L Alkaline Phosphatase (39-117) U/L Total Protein (6.5-8.0) g/dL Albumin (3.5-5.0) g/dL Beta HCG, Quant 1362 mIU/mL Urine Color Urine Appearance Urine pH (5.0-8.0) Ur Specific [place] (1.005-1.025) Urine Protein (NEG-TRACE) MG/DL Urine Glucose (UA) (NEG) MG/DL Urine Ketones (NEG) MG/DL Urine Blood (NEG) Urine Nitrite (NEG) Ur Leukocyte Esterase (NEG) COVID-19 (HOANG) Negative (Negative) COVID-19 Clin Com See Note Discharge Plan Discharge Clinical Impression: , Abdominal cramping affecting Patient Disposition: Xfer Acute Care Hospital Transfer Details: [facility] W2 Prescriptions: No Action fluconazole 150 mg tablet 150 mg PO Q3D Qty: 2 RF: 0 ketorolac 10 mg tablet 10 mg PO Q6H 5 Days Qty: 20 RF: 0 Interventions: Acute Care Transfer Worksheet (ED) Last Done: 09/06/20 12:06 Discharge Date/Time: 09/06/20 12:07
[2020-09-06 10:09] LABS: MANUAL DIFF FLAG NO
[2020-09-06] MEDS: 0.9 % Sodium Chloride 1,000 ML 999 ML IV (10:11)
[2020-09-06] MEDS: Acetaminophen 325 MG TABLET 975 MG PO (10:19)
[2020-09-06 10:28] LABS: Basophils Percent Auto 0.2 % (0-2); Eosinophils Absolute Auto 0.1 X10*3/uL (0.0-0.4); Eosinophils Percent Auto 0.7 % (0-4); Hematocrit 31.4 % (37-47); Hemoglobin 10.4 g/dl (12.0-16.0); Imm Gran Abs Auto 0.16 X10*3/uL (0.00-0.03); Imm Gran Pct Auto 1.2 % (0.0-0.4); Lymphocytes Absolute Auto 2.3 X10*3/uL (1.2-4.9); Lymphocytes Percent Auto 17.4 % (20-40); Mean Corpuscular HGB Conc 33.1 g/dl (31.0-35.0); Mean Corpuscular Hemoglobin 28.9 pg (27.0-33.0); Mean Corpuscular Volume 87.2 fL (80-98); Mean Platelet Volume 11.5 fL (9.4-12.3); Monocytes Absolute Auto 0.8 X10*3/uL (0.1-1.2); Monocytes Percent Auto 5.9 % (2-11); Neutrophils Absolute Auto 9.7 X10*3/uL (2.0-8.3); Neutrophils Percent Auto 74.6 % (45-73); Platelet Count 281 X10*3/uL (160-400); Red Cell Distribution Width 14.6 % (11.0-16.0)
[2020-09-06 10:36] LABS: Glucose Urine UA NEG (NEG); Leukocyte Esterase Urine NEG (NEG); Nitrite Urine NEG (NEG); PH 6.5 (5.0-8.0); Urine Blood NEG (NEG); Urine Ketones NEG (NEG); Urine Protein NEG (NEG-TRACE)
[2020-09-06 10:40] LABS: Appearance Urine HAZY; Color Urine YELLOW
[2020-09-06 10:43] LABS: Lactic Acid 1.8 mmol/L (0.5-2.0)
[2020-09-06 10:48] LABS: Alanine Aminotransferase 20 U/L (0-31); Albumin Level 3.6 g/dL (3.5-5.0); Alkaline Phosphatase 66 U/L (39-117); Anion Gap 13 (12-20); Aspartate Amino Transferase 16 U/L (5-31); Bilirubin Direct < 0.2 mg/dL (0.0-0.5); Bilirubin Total 0.2 mg/dL (0.0-1.0); Blood Urea Nitrogen 8 mg/dL (9-16); Carbon Dioxide 20 mmol/L (22-29); Chloride 108 mmol/L (96-108); Creatinine Clr Calc Pharmacy 192.3; Estimated Glomerular Filt Rate > 60; Glucose Random 115 mg/dL (60-115); Potassium 3.9 mmol/L (3.3-5.1); Sodium 137 mmol/L (135-145); Total Protein 6.2 g/dL (6.5-8.0)
[2020-09-06 10:55] LABS: HCG Quantitative 1362 mIU/mL
--- NOTE | 2020-09-06 11:37 | PC.NURSE ---
pt accepted [facility] w2 [phone]
[2020-09-06 11:47] LABS: COVID-19 Test Negative (Negative); IDNOW Serial# 9DD0AD1C
[2020-09-06 11:54] VITALS: BP 128/73; PULSE 72; RESP 18; TEMP 37; O2SAT 100
== END 2020-09-06 12:07 | disposition short-term general hospital (02) ==
PROVIDERS: Nurse Practitioner Family; Emergency Provider Emergency Medicine Emergency Medical Services
DX: O26.892 Other specified pregnancy related conditions, second trimester (principal); R10.84 Generalized abdominal pain; R50.9 Fever, unspecified; Z3A.24 24 weeks gestation of pregnancy; Z20.822 Contact with and (suspected) exposure to COVID-19
CPT/HCPCS: 36415; 80048; 80076; 81003; 83605; 84702; 85025; 87040; 87635; 96360; 99285

== ENCOUNTER 2020-09-23 11:01 | Outpatient (REF) | payer MEDICAID, SELFPAY ==
--- NOTE | 2020-09-23 12:37 | ECG_ITS ---
Test Reason : O99.891 - Other specified diseases and conditions complic... Blood Pressure : / mmHG Vent. Rate : 086 BPM Atrial Rate : 086 BPM P-R Int : 124 ms QRS Dur : 082 ms QT Int : 348 ms P-R-T Axes : 059 050 013 degrees QTc Int : 416 ms Normal sinus rhythm Normal ECG No previous ECGs available Referred By: Aspen Rodriguez Electronically Signed By:RACHAEL ACUÑA
[2020-09-23 14:55] LABS: Glucose 1 Hour PP 50gm Dose 125 mg/dL (60-140)
== END 2020-09-23 11:02 | disposition home or self-care (01) ==
LOC: HO.LAB 11:01
PROVIDERS: Absent Provider Obstetrics & Gynecology; Visit Provider Advanced Practice Midwife
DX: O99.013 Anemia complicating pregnancy, third trimester (principal); O99.891 Other specified diseases and conditions complicating pregnancy; R06.02 Shortness of breath
CPT/HCPCS: 36415; 93005; 99212

== ENCOUNTER → 2020-10-07 15:19 | Outpatient (BNVA) | payer MEDICAID, SELFPAY | PROVIDERS: Visit Provider Advanced Practice Midwife | DX: O26.893 Other specified pregnancy related conditions, third trimester (principal); R51.9 Headache, unspecified; R07.89 Other chest pain; O99.213 Obesity complicating pregnancy, third trimester; Z3A.31 31 weeks gestation of pregnancy | CPT/HCPCS: 81003; 99212 ==

== ENCOUNTER 2020-10-10 11:12 | Outpatient (REF) | payer MEDICAID, SELFPAY ==
--- NOTE | ~2020-10-10 | US_ITS ---
EXAMINATION: OBSTETRICAL ULTRASOUND, Follow up HISTORY: 25-year-old at the 32.0 weeks of gestation Size date discrepancy High BMI Insufficient care COMPARISON: 04/14/2020 TECHNIQUE: Real time transabdominal imaging with color and M-mode Doppler. PRESENTATION: Vertex PLACENTA LOCATION: Posterior without previa AMNIOTIC FLUID: JNOY 17.8 cm MEASUREMENTS: 1. Biparietal Diameter: 7.8 cm; 31.4 wks 2. Head Circumference: 30.1 cm; 33.3 wks 3. Abdominal Circumference: 27.7 cm; 31.6 wks 4. Femur Length: 6.6 cm; 33.6 wks 5. Heart Rate: 144 beats per minute WEIGHT: EFW: 1989 grams (4 lbs 6 oz) -- 56 %. BIOPHYSICAL PROFILE: Motion: 2 Tone: 2 Breathin Amniotic Fluid: 2 Total score: 8/8 GESTATIONAL AGE: 1. Established GA: 32.0 wks 2. GA from AUA: 32.5 wks ESTIMATED DATE OF DELIVERY: 1. Established NIMA: 12/05/2020 2. NIMA from A: 11/30/2020 US/US OB follow up IMPRESSION: 1. A single active fetus is in vertex presentation 2. Size equals dates 3. Reassuring biophysical profile Patient reports doing her fingerstick glucose monitoring. Her fasting values are in the 80s and postprandials and 110s. She is a poor historian. Unclear if she has had a survey and/or N IPT. Thank you very much for this referral. Suggest a follow-up in approximately 4 weeks (not scheduled). Total time 30 minutes. The time spent was devoted to counseling the patient about the disease and diagnosis, coordinating care including reviewing her records, pertinent lab data and studies, as well as discussing diagnostic evaluation and workup, plan therapeutic interventions and future disposition of care. This includes any additional research needed to obtain further information in formulating the plan of care of this patient. This note was generated with a voice recognition program. Please excuse any errors which may have been overlooked during my review of this note. Sometimes these errors may affect the content or meaning of a given sentence.
[2020-10-10 12:48] LABS: Hematocrit 35.2 % (37-47); Hemoglobin 11.4 g/dl (12.0-16.0); Mean Corpuscular HGB Conc 32.4 g/dl (31.0-35.0); Mean Corpuscular Hemoglobin 28.4 pg (27.0-33.0); Mean Corpuscular Volume 87.8 fL (80-98); Mean Platelet Volume 11.8 fL (9.4-12.3); Platelet Count 261 X10*3/uL (160-400); Red Blood Count 4.01 X10*6/uL (4.20-5.50); Red Cell Distribution Width 15.1 % (11.0-16.0); White Blood Count 12.1 X10*3/uL (4.8-10.8)
[2020-10-10 13:02] LABS: Alanine Aminotransferase 12 U/L (0-31); Aspartate Amino Transferase 12 U/L (5-31); Blood Urea Nitrogen 4 mg/dL (9-16)
[2020-10-10 13:52] LABS: Creatinine Urine 66.34 mg/dL; Total Protein Urine Random < 7 mg/dL (<12)
== END 2020-10-10 11:13 | disposition home or self-care (01) ==
LOC: HO.US 11:12
PROVIDERS: Visit Provider Advanced Practice Midwife
DX: O99.210 Obesity complicating pregnancy, unspecified trimester (principal); O26.899 Other specified pregnancy related conditions, unspecified trimester; R51.9 Headache, unspecified
CPT/HCPCS: 36415; 76816; 84156; 84450; 84460; 84520; 85027

== ENCOUNTER → 2020-10-24 10:37 | Outpatient (BNVA) | payer MEDICAID, SELFPAY | PROVIDERS: Visit Provider Advanced Practice Midwife | DX: O99.213 Obesity complicating pregnancy, third trimester (principal); Z3A.34 34 weeks gestation of pregnancy | CPT/HCPCS: 99212 ==

== ENCOUNTER 2020-11-07 10:37 | Outpatient (REF) | payer MEDICAID, SELFPAY ==
[2020-11-08 11:31] LABS: CT PCR NOT DETECTED (Not Detect.); NG PCR NOT DETECTED (Not Detect.)
== END 2020-11-07 10:38 | disposition home or self-care (01) ==
LOC: HO.LAB 10:37
PROVIDERS: Visit Provider Advanced Practice Midwife
DX: Z23 Encounter for immunization (principal); O99.213 Obesity complicating pregnancy, third trimester; E66.9 Obesity, unspecified
CPT/HCPCS: 87081; 87147; 87491; 87591; 90471; 90715; 99212

== ENCOUNTER → 2020-11-13 11:06 | Outpatient (BNVA) | payer MEDICAID, SELFPAY | PROVIDERS: Visit Provider Advanced Practice Midwife | DX: Z34.83 Encounter for supervision of other normal pregnancy, third trimester (principal); Z3A.36 36 weeks gestation of pregnancy | CPT/HCPCS: 81003; 99212 ==

== ENCOUNTER 2020-11-14 09:30 | Outpatient (REF) | payer MEDICAID, SELFPAY ==
--- NOTE | ~2020-11-14 | US_ITS ---
EXAMINATION: OBSTETRICAL ULTRASOUND, Follow up HISTORY: 25-year-old at the 37.0 weeks of gestation Size date discrepancy High BMI Insufficient care COMPARISON: 10/10/2020 TECHNIQUE: Real time transabdominal imaging with color and M-mode Doppler. PRESENTATION: Vertex PLACENTA LOCATION: Posterior without previa AMNIOTIC FLUID: JONY 14.4 MEASUREMENTS: 1. Biparietal Diameter: 8.9 cm; 36.1 wks 2. Head Circumference: 33.0 cm; 37.4 wks 3. Abdominal Circumference: 32.3 cm; 36.2 wks 4. Femur Length: 7.2 cm; 37.0 wks 5. Heart Rate: 146 beats per minute WEIGHT: EFW: 2960 grams (6 lbs 8 oz) -- 43 %. BIOPHYSICAL PROFILE: Motion: 2 Tone: 2 Breathin Amniotic Fluid: 2 Total score: 8/8 GESTATIONAL AGE: 1. Established GA: 37.0 wks 2. GA from AUA: 36.6 wks ESTIMATED DATE OF DELIVERY: 1. Established NIMA: 12/05/2020 2. NIMA from AUA: 12/06/2020 US/US OB follow up IMPRESSION: 1. A single live IUP 2. Size equals dates 3. Reassuring biophysical profile Thank you very much for this referral. This note was generated with a voice recognition program. Please excuse any errors which may have been overlooked during my review of this note. Sometimes these errors may affect the content or meaning of a given sentence.
== END 2020-11-14 09:31 | disposition home or self-care (01) ==
LOC: HO.US 09:30
PROVIDERS: Visit Provider Advanced Practice Midwife
DX: O99.210 Obesity complicating pregnancy, unspecified trimester (principal)
CPT/HCPCS: 76816

== ENCOUNTER → 2020-11-25 10:29 | Outpatient (BNVA) | payer MEDICAID, SELFPAY | PROVIDERS: Visit Provider Advanced Practice Midwife | DX: O26.893 Other specified pregnancy related conditions, third trimester (principal); R12 Heartburn; Z3A.38 38 weeks gestation of pregnancy | CPT/HCPCS: 81003; 99212 ==

== ENCOUNTER 2020-12-02 14:05 | Outpatient (REF) | payer MEDICAID, SELFPAY ==
[2020-12-02 17:18] LABS: Creatinine Urine 79.11 mg/dL; Protein/Creatinine Ratio, Ur 0.11 (<0.2); Total Protein Urine Random 9 mg/dL (<12)
== END 2020-12-02 14:06 | disposition home or self-care (01) ==
LOC: HO.LAB 14:05
PROVIDERS: Visit Provider Advanced Practice Midwife
DX: O26.893 Other specified pregnancy related conditions, third trimester (principal); R51.9 Headache, unspecified; Z3A.39 39 weeks gestation of pregnancy
CPT/HCPCS: 81003; 84156; 99212

== ENCOUNTER 2020-12-03 15:29 | Outpatient (REF) | payer MEDICAID, SELFPAY ==
[2020-12-03 16:27] LABS: Hematocrit 35.8 % (37-47); Hemoglobin 11.8 g/dl (12.0-16.0); Mean Corpuscular Hemoglobin 28.4 pg (27.0-33.0); Mean Corpuscular Volume 86.3 fL (80-98); Mean Platelet Volume 12.4 fL (9.4-12.3); Platelet Count 214 X10*3/uL (160-400); Red Blood Count 4.15 X10*6/uL (4.20-5.50); Red Cell Distribution Width 15.6 % (11.0-16.0)
[2020-12-03 16:52] LABS: Alanine Aminotransferase 16 U/L (0-31); Aspartate Amino Transferase 16 U/L (5-31); Blood Urea Nitrogen 7 mg/dL (9-16)
[2020-12-03 16:54] LABS: Uric Acid 5.1 mg/dL (2.4-5.7)
== END 2020-12-03 15:30 | disposition home or self-care (01) ==
LOC: HO.LAB 15:29
PROVIDERS: Visit Provider Advanced Practice Midwife
DX: O26.899 Other specified pregnancy related conditions, unspecified trimester (principal); R51.9 Headache, unspecified
CPT/HCPCS: 36415; 84450; 84460; 84520; 84550; 85027

== ENCOUNTER → 2020-12-22 14:32 | Outpatient (BNVA) | payer MEDICAID, SELFPAY | PROVIDERS: Visit Provider Advanced Practice Midwife | DX: Z39.2 Encounter for routine postpartum follow-up (principal); R51.9 Headache, unspecified; R10.2 Pelvic and perineal pain; F41.8 Other specified anxiety disorders | CPT/HCPCS: 99212 ==

== ENCOUNTER → 2020-12-26 15:06 | Outpatient (BNVA) | payer MEDICAID, SELFPAY | PROVIDERS: Visit Provider Advanced Practice Midwife | DX: Z39.2 Encounter for routine postpartum follow-up (principal); O36.4XX0 Maternal care for intrauterine death, not applicable or unspecified; F43.21 Adjustment disorder with depressed mood | CPT/HCPCS: 99212 ==

== ENCOUNTER → 2021-01-28 11:08 | Outpatient (BNVA) | payer MEDICAID, SELFPAY | PROVIDERS: Visit Provider Obstetrics & Gynecology | DX: Z39.2 Encounter for routine postpartum follow-up (principal); F32.A Depression, unspecified | CPT/HCPCS: 99212 ==

== ENCOUNTER 2021-05-20 18:38 | Emergency (ER) | payer MEDICAID, SELFPAY ==
[2021-05-20 20:49] VITALS: BP 131/110; PULSE 82; RESP 16; TEMP 36.8; O2SAT 99; BMI 38.0
[2021-05-20 21:11] LABS: Imm Gran Abs Auto 0.04 X10*3/uL (0.00-0.03); Imm Gran Pct Auto 0.3 % (0.0-0.4); MANUAL DIFF FLAG SCAN; Neutrophils Percent Auto 58.7 % (45-73); SCAN SMEAR FLAG 1
[2021-05-20 21:13] LABS: Basophils Percent Auto 0.3 % (0-2); Eosinophils Absolute Auto 0.2 X10*3/uL (0.0-0.4); Eosinophils Percent Auto 1.6 % (0-4); Hematocrit 33.6 % (37.0-47.0); Lymphocytes Absolute Auto 4.1 X10*3/uL (1.2-4.9); Lymphocytes Percent Auto 31.7 % (20-40); Mean Corpuscular HGB Conc 29.8 g/dl (31.0-35.0); Mean Corpuscular Hemoglobin 20.5 pg (27.0-33.0); Mean Platelet Volume 10.1 fL (9.4-12.3); Monocytes Percent Auto 7.4 % (2-11); Neutrophils Absolute Auto 7.6 x10*3/uL (2.0-8.3); Platelet Count 356 X10*3/uL (160-400); Red Blood Count 4.87 X10*6/uL (4.20-5.50)
[2021-05-20 21:26] LABS: COVID-19 Test Negative (Negative); IDNOW Serial# 08D9AD1C
[2021-05-20 21:31] LABS: Appearance Urine CLEAR; Color Urine STRAW; Glucose Urine UA NEG (NEG); Leukocyte Esterase Urine NEG (NEG); Nitrite Urine NEG (NEG); Urine Blood NEG (NEG); Urine Ketones NEG (NEG); Urine Protein NEG (NEG-TRACE)
[2021-05-20 21:32] LABS: UPreg QC Valid YES; Urine Pregnancy NEGATIVE (NEGATIVE)
[2021-05-20 21:32] LABS: Anion Gap 10 (12-20); Blood Urea Nitrogen 13 mg/dL (9-16); Calcium 9.6 mg/dL (8.4-10.2); Carbon Dioxide 26 mmol/L (22-29); Chloride 110 mmol/L (96-108); Creatinine Clr Calc Pharmacy 160.6; Estimated Glomerular Filt Rate > 60; Glucose Random 88 mg/dL (60-115); Potassium 4.4 mmol/L (3.3-5.1); Sodium 142 mmol/L (135-145)
[2021-05-20 21:39] LABS: PLT ABN DIST 1; SLIDE REVIEW VERIFIED
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
[2021-05-20 22:00] VITALS: BP 127/77; PULSE 78; RESP 15; TEMP 36.8; O2SAT 99
[2021-05-20 22:15] LABS: HCG Quantitative < 2 mIU/mL
[2021-05-20 22:31] LABS: Alanine Aminotransferase 18 U/L (0-31); Albumin Level 4.4 g/dL (3.5-5.0); Alkaline Phosphatase 67 U/L (39-117); Bilirubin Direct < 0.2 mg/dL (0.0-0.5); Lipase 47 U/L (8-78); Total Protein 7.2 g/dL (6.5-8.0)
[2021-05-20 22:32] LABS: Aspartate Amino Transferase 14 U/L (5-31); Bilirubin Total 0.4 mg/dL (0.0-1.0)
== END 2021-05-20 22:50 | disposition home or self-care (01) ==
PROVIDERS: Emergency Provider Emergency Medicine; PCP Nurse Practitioner Family
DX: K21.9 Gastro-esophageal reflux disease without esophagitis (principal); Z20.822 Contact with and (suspected) exposure to COVID-19
CPT/HCPCS: 80048; 80076; 81003; 81025; 83690; 84702; 85025; 87635; 99283; 99284

== ENCOUNTER 2022-05-27 11:03 | Emergency (ER) | payer MEDICAID, SELFPAY ==
--- NOTE | ~2022-05-27 | XR_ITS ---
EXAMINATION: XR CHEST CLINICAL INFORMATION: Chest pain. COMPARISON: Chest radiographs dated 02/16/2011. TECHNIQUE: 2 views of the chest were obtained. FINDINGS: No significant abnormality is noted involving the heart, lungs, mediastinum, bony thorax or soft tissues. XR/XR chest 2V IMPRESSION: No acute cardiopulmonary process.
[2022-05-27 11:10] VITALS: BP 146/104; PULSE 81; RESP 17; TEMP 36.6; O2SAT 98; BMI 39.5
--- NOTE | 2022-05-27 11:12 | ECG_ITS ---
Test Reason : sob Blood Pressure : / mmHG Vent. Rate : 060 BPM Atrial Rate : 060 BPM P-R Int : 142 ms QRS Dur : 076 ms QT Int : 378 ms P-R-T Axes : 046 048 033 degrees QTc Int : 378 ms Sinus rhythm with marked sinus arrhythmia Otherwise normal ECG When compared with ECG of 23-SEP-2020 12:50, No significant change was found Referred By: Diana Ballesteros Electronically Signed By:Ellis Thomson
--- OUTSIDE RECORDS SUMMARY | 2022-05-27 11:18 | XMS_ITS | Continuity of Care Document ---
:1995 Author Organization [facility] [employer] Adult Medicine Address [address] [place] [address]- Care Team Providers Name Role Phone Louis SOL, Holly Whitehead Primary Care Physician Encounter [facility] Date(s): 05/27/21 - 06/03/21 [facility] [address] [place] [address]- Encounter Diagnosis GERD (gastroesophageal reflux disease) (Discharge Diagnosis) - 05/27/21 Epigastric pain (Discharge Diagnosis) - 05/27/21 Urinary urgency (Discharge Diagnosis) - 05/27/21 Attending Physician: Nathalia Watkins NP Allergies, Adverse Reactions, Alerts No Known Allergies Medications omeprazole 20 mg oral enteric coated capsule 1 capsule = 20 mg, By Mouth, Daily, # 30 capsule, 0 Refills, Maintenance, 05/27/21 11:39:00 EST, EC Capsule, [id number], Partial fill upon patient request if the prescription is for a schedule II opioid drug., 173, cm, 05/27/21 10:48:00 EST, H... Start Date: 05/27/21 Status: Ordered Problem List Condition Effective Dates Status Health Status Informant Obese class II(Confirmed) Active Diagnosis Diagnosis Type Effective Dates Health Clinical Infor mant Status Service GERD Discharge 05/27/21 (gastroesophageal Diagnosis reflux disease) Epigastric pain Discharge 05/27/21 Diagnosis Urinary urgency Discharge 05/27/21 Diagnosis Vital Signs Most recent to oldest [Reference Range]: 1 Height 173.00 cm (05/27/21 10:48 AM) Weight 118.0 kg (05/27/21 10:48 AM) Oxygen Saturation [94-100 %] 100 % (05/27/21 10:48 AM) Pulse Rate [55-90 bpm] 92 bpm *H* (05/27/21 10:48 AM) Body Mass Index [18.5-24.99] 39.43 *>HHI* (05/27/21 10:48 AM) Blood Pressure [90-138/55-84 mm Hg] 120/76 mm Hg (05/27/21 10:48 AM) Respiratory Rate [16-30 br/min] 17 br/min (05/27/21 10:48 AM) Temperature [96.8-100.4 DegF] 97.2 DegF (05/27/21 10:48 AM) Liters per Minute 0 L/min (05/27/21 10:48 AM) Mode of Delivery (Oxygen) Room air (05/27/21 10:48 AM) Blood pressure sites Arm, left (05/27/21 10:48 AM) Temperature Route Temporal (05/27/21 10:48 AM) Weight Obtained Via Standing scale (05/27/21 10:48 AM) Social History Social History Type Response Smoking Status Never smoker entered on: 02/03/16 Sex
--- OUTSIDE RECORDS SUMMARY | 2022-05-27 11:18 | XMS_ITS | Continuity of Care Document ---
:1997 Author Organization [facility] [employer] Adult Medicine Address [address] [place] [address]- Care Team Providers Name Role Phone Louis SOL, Holly Whitehead Primary [facility] Phys[id number] Date(s): 05/27/21 - 08/07/21 [facility] [employer] Adult Medicine [address] [place] [address]- Attending Physician: Roland SOL, Nathalia Allergies, Adverse Reactions, Alerts No Known Allergies [...] Health Status Informant Obese class II(Confirmed) Active Social History Social History Type Response Smoking Status Never smoker entered on: 02/03/16 Sex
--- OUTSIDE RECORDS SUMMARY | 2022-05-27 11:18 | XMS_ITS | Continuity of Care Document ---
:1995 Author Organization [facility] [employer] Adult Medicine Address [address] [place] [address]- Care Team Providers Name Role Phone Louis SOL, Holly Whitehead Primary Care Physician [id number] Date(s): 05/05/21 - 09/02/21 [facility] [employer] Adult Medicine [address] [place] [address]- Attending Physician: Darrell Fabian MD Allergies, Adverse Reactions, Alerts No Known Allergies [...]
--- OUTSIDE RECORDS SUMMARY | 2022-05-27 11:18 | XMS_ITS | Continuity of Care Document ---
:1995 Author Organization [facility] [employer] Adult Medicine Address [address] [place] [id number]- Care Team Providers Name Role Phone Louis SOL, Holly Whitehead Primary Care Physician Encounter [facility] [id number] Date(s): 08/03/21 - 09/02/21 [facility] [employer] Adult Medicine [address] [place] [address]- Attending Physician: Yareli Bullock Admitting Physician: AdmYareli morales Referring Physician: AdmtrYareli Allergies, Adverse Reactions, Alerts No Known Allergies [...]
--- OUTSIDE RECORDS SUMMARY | 2022-05-27 11:18 | XMS_ITS | Continuity of Care Document ---
:1995 Author Organization [facility] Address [address] [place] [address]- Care Team Providers Name Role Phone Ismael MORGAN, Beatriz Morales Primary Care Physician Encounter [facility] Date(s): 08/05/20 - 09/04/[address] [id number] Allergies, Adverse Reactions, Alerts Substance Reaction Severity Status NKA Active Medications Bactrim DS Tablet 1, tablet, By Mouth, 2 times a day, Maintenance, 02/03/16 16:13:12 Start Date: 02/03/16 Status: OrderedPrenatal Multivitamins By Mouth, Daily, 0 Refills, Maintenance, 08/05/20 16:13:00 EDT, Partial fill upon patient request ifthe prescription is for a schedule II opioid drug. Start Date: 08/05/20 Status: OrderedTylenol Extra Strength 500 mg oral tablet 2 tablet = 1,000 mg, By Mouth, Every 6 hours, PRN for pain, # 120 tablet, 0 Refills, Acute 10/05/20 17:45:00 EDT, 08/05/20 17:44:00 EDT, Tablet, [id number], Partial fill upon patient request ifthe prescription is for a schedule II opioid drug... Start Date: 08/05/20 Stop Date: 10/05/20 Status: Ordered Social History Social History Type Response Smoking Status Never smoker entered on: 02/03/16 Sex
--- OUTSIDE RECORDS SUMMARY | 2022-05-27 11:18 | XMS_ITS | Continuity of Care Document ---
:1995 [facility] Address [address] [place] [address]- Care Team Providers Name Role Phone Holly Myers NP Primary Care Physician [facility] [id number] Date(s): 12/30/21 - 01/06/22 [facility] [address] [place] [address] Encounter Diagnosis Depression (Discharge Diagnosis) - 12/30/21 Attending Physician: Holly Myers NP Allergies, Adverse Reactions, Alerts No Known [...] Date: 05/27/21 Status: Ordered Problem List Condition Confirmation Course Effective Dates Status Health Stat us Informant Depression Confirmed Active Obese class II Confirmed Active Diagnosis Diagnosis Type Effective Dates Health Status Clinical Serv [facility] Informant Depression Discharge 12/30/21 Diagnosis Social History Social History Type Response Smoking Status Never smoker entered on: 02/03/16 Sex Patient Care team information PersonnelName: Holly Myers NP Address: Address: [address] [place] [address] [employer] [address]
--- OUTSIDE RECORDS SUMMARY | 2022-05-27 11:18 | XMS_ITS | Continuity of Care Document ---
:1995 Author Organization [facility] Address [address] [place] [address]- Care Team Providers Name Role Phone Holly Myers NP Primary Care Physician Encounter [facility] NBR [id number] Date(s): 11/11/21 - [facility] [address] [place] [address]- Allergies, Adverse Reactions, Alerts No Known Allergies [...] Status Never smoker entered on: 02/03/16 Sex Care Team PersonnelName: Holly Myers NP Address: [address] [place], [place] [address] [address]
--- OUTSIDE RECORDS SUMMARY | 2022-05-27 11:18 | XMS_ITS | Continuity of Care Document ---
:1995 Author Organization [facility] [employer] Adult Medicine Address [address] [place] [id number]- Care Team Providers Name Role Phone Holly Myers NP Primary Care Physician Encounter [facility] NBR [id number] Date(s): 04/14/21 - 04/21/21 [facility] [employer] Adult Medicine [address] [place], [place] [id number]- Encounter Diagnosis Depression (Discharge Diagnosis) - 04/14/21 Attending Physician: Holly Myers NP Allergies, Adverse Reactions, Alerts Substance Reaction Severity Status NKA Active Medications Bactrim DS Tablet 1, tablet, By Mouth, 2 times a day, Maintenance, 02/03/16 16:13:12 Start Date: 02/03/16 Status: OrderedPrenatal Multivitamins By Mouth, Daily, 0 Refills, Maintenance, 08/05/20 16:13:00 EDT, Partial fill upon patient request ifthe prescription is for a schedule II opioid drug. Start Date: 08/05/20 Status: Ordered Problem List Diagnosis Diagnosis Type Effective Dates Health Status Clinical Serv ice Informant Depression Discharge 04/14/21 Diagnosis Social History Social History Type Response Smoking Status Never smoker entered on: 02/03/16 Sex
--- OUTSIDE RECORDS SUMMARY | 2022-05-27 11:18 | XMS_ITS | Continuity of Care Document ---
:1995 Author Organization [facility] Address [address] [place] [address]- Care Team Providers Name Role Phone Ismael MORGAN, Beatriz Morales Primary Care Physician Encounter [facility] Date(s): 09/06/20 - 09/06/[address] [address] Discharge Disposition: A-D/C Home Attending Physician: Ronny Guerrero MD Admitting Physician: Ronny Guerrero MD Referring Physician: Ronny Guerrero MD Allergies, Adverse Reactions, Alerts Substance Reaction Severity [...] 10/05/20 17:45:00 EDT, 08/05/20 17:44:00 EDT, Tablet, [id number], Partial fill upon patient request ifthe prescription is for a schedule II opioid drug... Start Date: 08/05/20 Stop Date: 10/05/20 Status: Ordered Vital Signs Most recent to oldest [Reference Range]: 1 Oxygen Saturation [94-100 %] 100 % (09/06/20 12:58 PM) Blood Pressure [90-138/55-84 mm Hg] 123/65 mm Hg (09/06/20 12:58 PM) Respiratory Rate [16-30 br/min] 18 br/min (09/06/20 12:58 PM) Temperature [96.8-100.4 DegF] 98.2 DegF (09/06/20 12:48 PM) Mode of Delivery (Oxygen) Room air (09/06/20 12:58 PM) Blood pressure sites Arm, right (09/06/20 12:58 PM) Temperature Route Oral (09/06/20 12:48 PM) Social History Social History Type Response Smoking Status Never smoker entered on: 02/03/16 Sex
--- OUTSIDE RECORDS SUMMARY | 2022-05-27 11:18 | XMS_ITS | Continuity of Care Document ---
:1995 Author Organization [facility] Adult Medicine Address [address] [place] [address]- Care Team Providers Name Role Phone Holly Myers NP Primary Care Physician Encounter [facility] [id number] Date(s): 12/30/21 - 01/29/[address] Attending Physician: Yareli Bullock Admitting Physician: AdmtrYareli Referring Physician: Admtr, Yareli Allergies, Adverse Reactions, Alerts No Known Allergies [...] Confirmed Active Obese class II Confirmed Active Social History Social History Type Response Smoking Status Never smoker entered on: 02/03/16 Sex Patient Care team information PersonnelName: Holly Myers NP Address: Address: [address] [place] [id number]
--- OUTSIDE RECORDS SUMMARY | 2022-05-27 11:18 | XMS_ITS | Continuity of Care Document ---
:1995 Author Organization [facility] [employer] Adult [facility] Address [address] [place] [address]- Care Team Providers Name Role Phone Louis SOL, Holly Whitehead Primary Care Physician Encounter [facility] NBR [id number] Date(s): 05/22/21 - 06/21/21 [facility] [employer] Adult Medicine [address] [place] [address]- Allergies, Adverse Reactions, Alerts No Known Allergies [...]
--- OUTSIDE RECORDS SUMMARY | 2022-05-27 11:18 | XMS_ITS | Continuity of Care Document ---
:1995 Author Organization [facility] Address [address] [place] [address]- Care Team Providers Name Role Phone Ismael MORGAN, Beatriz Morales Primary Care Physician Encounter [facility] Date(s): 08/05/20 - 08/05/[address] [address] Discharge Disposition: A-D/C Home Attending Physician: Cali MORGAN [OB], Dodie Mar Admitting Physician: Cali MORGAN [OB], Dodie Mar Referring Physician: Cali MORGAN [OB], Dodie Mar Allergies, Adverse Reactions, Alerts Substance Reaction Severity [...] Most recent to oldest [Reference Range]: 1 Weight 109.5 kg (08/05/20 2:59 PM) Oxygen Saturation [94-100 %] 100 % (08/05/20 4:10 PM) Blood Pressure [90-138/55-84 mm Hg] 124/73 mm Hg (08/05/20 4:10 PM) Respiratory Rate [16-30 br/min] 16 br/min (08/05/20 4:10 PM) Temperature [96.8-100.4 DegF] 98.7 DegF (08/05/20 4:10 PM) Mode of Delivery (Oxygen) Room air (08/05/20 4:10 PM) Blood pressure sites Arm, left (08/05/20 4:10 PM) Temperature Route Oral (08/05/20 4:10 PM) Dry Weight 109.5 kg (08/05/20 2:59 PM) Social History Social History Type Response Smoking Status Never smoker entered on: 02/03/16 Sex
--- OUTSIDE RECORDS SUMMARY | 2022-05-27 11:18 | XMS_ITS | Continuity of Care Document ---
:1995 Author Organization [facility] Adult Medicine Address [address] [place] [address]- Care Team Providers Name Role Phone Holly Myers NP Primary Care Physician Encounter [facility] NBR [id number] Date(s): 12/28/21 - 01/27/22 [facility] [place] [address]- Allergies, Adverse Reactions, Alerts No Known Allergies [...] information PersonnelName: Holly Myers NP Address: Address: [address] [place] [address]
--- OUTSIDE RECORDS SUMMARY | 2022-05-27 11:18 | XMS_ITS | Continuity of Care Document ---
:1995 Author Organization [facility] [employer] Adult [facility] Address [address] [place] [address]- Care Team Providers Name Role Phone Ismael MORGAN, Beatriz Morales Primary Care Physician [id number] Date(s): 03/13/21 - 04/12/21 [facility] [employer] Adult Medicine [address] [place], [place] [phone]- [place] Allergies, Adverse Reactions, Alerts Substance Reaction Severity Status NKA Active Medications Bactrim DS Tablet 1, tablet, By Mouth, 2 times a day, Maintenance, 02/03/16 16:13:12 Start Date: 02/03/16 Status: OrderedPrenatal Multivitamins By Mouth, Daily, 0 Refills, Maintenance, 08/05/20 16:13:00 EDT, Partial fill upon patient request ifthe prescription is for a schedule II opioid drug. Start Date: 08/05/20 Status: Ordered Social History Social History Type Response Smoking Status Never smoker entered on: 02/03/16 Sex
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
[2022-05-27 12:50] LABS: MANUAL DIFF FLAG NO
[2022-05-27 12:53] LABS: Basophils Percent Auto 0.4 % (0-2); Eosinophils Absolute Auto 0.1 X10*3/uL (0.0-0.4); Hematocrit 36.8 % (37.0-47.0); Hemoglobin 11.2 g/dl (12.0-16.0); Imm Gran Abs Auto 0.02 X10*3/uL (0.00-0.03); Imm Gran Pct Auto 0.2 % (0.0-0.4); Lymphocytes Absolute Auto 3.1 X10*3/uL (1.2-4.9); Lymphocytes Percent Auto 34.4 % (20-40); Mean Corpuscular HGB Conc 30.4 g/dl (31.0-35.0); Mean Corpuscular Hemoglobin 23.9 pg (27.0-33.0); Mean Corpuscular Volume 78.5 fL (80.0-98.0); Monocytes Absolute Auto 0.7 X10*3/uL (0.1-1.2); Monocytes Percent Auto 7.3 % (2-11); Neutrophils Percent Auto 56.7 % (45-73); Platelet Count 336 X10*3/uL (160-400); Red Blood Count 4.69 X10*6/uL (4.20-5.50); Red Cell Distribution Width 18.1 % (11.0-16.0); White Blood Count 8.9 X10*3/uL (4.8-10.8)
[2022-05-27 13:06] LABS: INTERNATIONAL NORM RATIO 1.1 (0.9-1.1); Prothrombin Time 12.7 SEC (10.0-13.1)
[2022-05-27 13:11] LABS: Alanine Aminotransferase 16 U/L (0-31); Albumin Level 4.5 g/dL (3.5-5.0); Alkaline Phosphatase 55 U/L (39-117); Anion Gap 12 (12-20); Aspartate Amino Transferase 13 U/L (5-31); Bilirubin Total 0.6 mg/dL (0.0-1.0); Blood Urea Nitrogen 13 mg/dL (9-16); Calcium 9.5 mg/dL (8.4-10.2); Carbon Dioxide 25 mmol/L (22-29); Chloride 108 mmol/L (96-108); Creatinine Clr Calc Pharmacy 156.1; Estimated Glomerular Filt Rate > 60; Glucose Random 89 mg/dL (60-115); Potassium 4.1 mmol/L (3.3-5.1); Sodium 141 mmol/L (135-145); Total Protein 7.2 g/dL (6.5-8.0)
[2022-05-27 13:23] LABS: Troponin-I High Sensitivity < 3.5 ng/L (<3.5-17.0)
[2022-05-27 13:39] LABS: Influenza A PCR NEGATIVE (Negative); Influenza B PCR NEGATIVE (Negative); Resp Syncy Virus RNA Qual PCR NEGATIVE (Negative); SARS COV2 PCR INHOUSE NEGATIVE (Negative)
--- NOTE | 2022-05-27 14:44 | PC.NURSE ---
26 y/o F pw CP/sob. pt denies fevers at home, denies any other complaints. pt has hx of this related to anxiety however patient states that this feels different. pt has already gotten EKG/XRAY/labs. awaiting final plan
== END 2022-05-27 14:47 | disposition home or self-care (01) ==
PROVIDERS: Physician Assistant Medical; Emergency Provider Emergency Medicine; PCP Nurse Practitioner Family
DX: R07.89 Other chest pain (principal); R06.02 Shortness of breath; Z20.822 Contact with and (suspected) exposure to COVID-19; Z20.828 Contact with and (suspected) exposure to other viral communicable diseases; Z79.899 Other long term (current) drug therapy
CPT/HCPCS: 0241U; 71046; 80053; 83735; 84484; 85025; 85610; 93005; 99283; 99284

== ENCOUNTER 2022-08-09 12:28 | Emergency (ER) | payer OTHER, SELFPAY ==
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
[2022-08-09 12:38] VITALS: BP 152/99; PULSE 89; RESP 15; TEMP 36.6; O2SAT 99; BMI 38.5
--- NOTE | 2022-08-09 12:46 | PC.NURSE ---
poit tenderness in cervical area collar placed
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
--- OUTSIDE RECORDS SUMMARY | 2022-08-09 12:58 | XMS_ITS | Continuity of Care Document ---
Author Name Unknown Organization [facility] Address [address] [place] [id number] Care Team Providers Care Building Appraiser Name Role Phone Holly Myers NP Primary Care Physician [phone] Encounter [facility] NBR [id number] Date(s): 05/26/22 - 06/25/22 [facility] [address] [place], [place] [id number]- Allergies, Adverse Reactions, Alerts No Known Allergies Medications omeprazole 20 mg oral enteric coated capsule 1 capsule = 20 mg, By Mouth, Daily, # 30 capsule, 0 Refills, Maintenance, 05/27/21 11:39:00 EST, ECCapsule, [id number], Partial fill upon patient request if the prescription is for a schedule II opioid drug., 173, cm, 05/27/21 10:48:00 EST, H... Start Date: 05/27/21 Status: Ordered Problem List Condition Confirmation Course Effective Dates Status Health St atus Informant Depression Confirmed Active Obese class II Confirmed Active Social History Social History Type Response Smoking Status Never smoker entered on: 02/03/16 Sex Patient Care team information Care Team Personnel Name: Holly Myers NP Position: S PCO Associate Professional Member Role: PCP Address: Address: [address] [place] [address] [facility] [place] [place] - Care Team Related Persons Name: DOMINIC MULTANI Address: [address] [address]
[2022-08-09] MEDS: Diphth,Pertus(ACell),Tet Adult 0.5 ML SYRINGE IM (14:33)
== END 2022-08-09 15:10 | disposition home or self-care (01) ==
PROVIDERS: Emergency Provider Emergency Medicine; PCP Nurse Practitioner Family
DX: S00.93XA Contusion of unspecified part of head, initial encounter (principal); S60.511A Abrasion of right hand, initial encounter; R51.9 Headache, unspecified; M54.2 Cervicalgia; M79.641 Pain in right hand; Y04.2XXA Assault by strike against or bumped into by another person, initial encounter; Y93.9 Activity, unspecified; Y92.009 Unspecified place in unspecified non-institutional (private) residence as the place of occurrence of the external cause; Y99.9 Unspecified external cause status; Z23 Encounter for immunization
CPT/HCPCS: 70450; 72125; 73130; 90471; 90715; 99282; 99284

== ENCOUNTER 2025-03-25 15:31 | Emergency (ER) | payer OTHER, SELFPAY ==
--- NOTE | ~2025-03-25 | XR_ITS ---
EXAMINATION: XR CHEST CLINICAL INFORMATION: cough COMPARISON: 05/27/2022 TECHNIQUE: 2 views of the chest were obtained. FINDINGS: No significant abnormality is noted involving the heart, lungs, mediastinum, bony thorax or soft tissues. XR/XR chest 2V IMPRESSION: Stable x-ray, no acute disease. Electronically signed by: Hubert Senior MD 03/25/2025 04:06 PM [facility] [place]
[2025-03-25 15:54] VITALS: BP 135/66; PULSE 77; RESP 20; TEMP 36.9; O2SAT 100; BMI 33.1
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
[2025-03-25 17:11] LABS: Strep A Nucleic Acid Negative (Negative)
[2025-03-25 17:38] LABS: Resp Syncy Virus RNA Qual PCR NEGATIVE (Negative); SARS COV2 PCR INHOUSE NEGATIVE (Negative)
--- OUTSIDE RECORDS SUMMARY | 2025-03-25 22:49 | XMS_ITS ---
Author Name [facility] Organization Unknown History of Medication Use Medication Directions Dispensed Refills Start Date End Date Stat us fluconazole 01/11/2025 active cyclobenzaprine 10/19/2024 activ e naproxen 10/19/2024 active Encounters Encounter Type Encounter Reason Primary Diagnosis Location Date Ambulatory TBE Acute candidiasi s of vulva and vagina [facility]) 01/11/2025 Care Team Organization Name Specialty Phone Email Start Date End Da te [facility] 01[facility]25 [facility]
== END 2025-03-25 18:58 | disposition home or self-care (01) ==
PROVIDERS: Physician Assistant Medical; Emergency Provider Emergency Medicine
DX: J40 Bronchitis, not specified as acute or chronic (principal); R05.9 Cough, unspecified; Z03.818 Encounter for observation for suspected exposure to other biological agents ruled out
CPT/HCPCS: 71046; 87637; 87651; 99281; 99283

== ENCOUNTER → 2025-03-25 15:55 | Outpatient (BNV) | payer OTHER, SELFPAY | PROVIDERS: Visit Provider Radiology Diagnostic Radiology | DX: R05.9 Cough, unspecified (principal) | CPT/HCPCS: 71046 ==